=== PATIENT | male | born 1965 ===

== ENCOUNTER 2021-10-16 06:58 | Inpatient (IN) ==
[~2021-10-16 06:58] MED LIST: Buffered Lidocaine 1% SYRIN 1 ml INTRADERM ONE; Lactated Ringers 1000 ml BAG 1,000 ML IV SCH
[2021-10-16] MEDS ORDERED: Clindamycin 900 MG/D5W BAG 900 MG/50 ML BAG IVPB ONE (08:05)
[2021-10-16] MEDS ORDERED: Scopolamine 1 mg/72hr PATCH ONE (08:05)
[2021-10-16] MEDS ORDERED: Heparin 5000 UNITS/ML 1 mL VIAL ONE (08:05)
[2021-10-16] MEDS ORDERED: DiMENhydriNATE IV 50 mg/ml 1 ml VIAL IV PUSH PRN (09:06)
[2021-10-16] MEDS ORDERED: Ondansetron 4 mg VIAL 2 MG/ML 2 ml VIAL IV PRN ×2 (09:06→12:35)
[2021-10-16] MEDS ORDERED: Naloxone 0.4 mg VIAL 0.4 mg/ml 1 ml VIAL IV PRN (09:06)
[2021-10-16] MEDS ORDERED: Metoclopramide 5 MG/ML VIAL (10 mg) IV PRN (09:06)
[2021-10-16] MEDS ORDERED: fentaNYL 100 mcg/2 ml 50 MCG/ML VIAL ONE ×2 (09:31→12:44)
[2021-10-16] MEDS ORDERED: Midazolam 2 mg/2 ml VIAL 1 mg/ml 2 ml VIAL (2 mg) ONE (09:31)
[2021-10-16] MEDS ORDERED: Dexamethasone IV 4 MG/ML VIAL 1 ml VIAL ONE (09:31)
[2021-10-16] MEDS ORDERED: Lidocaine 2% PF 5 ML VIAL ONE (09:31)
[2021-10-16] MEDS ORDERED: Propofol 10 MG/ML 20 ML BTL ONE (09:31)
[2021-10-16] MEDS ORDERED: Rocuronium 50 mg VIAL 10 mg/ml 5 ml VIAL (50 mg) ONE ×3 (09:31→11:44)
[2021-10-16] MEDS ORDERED: Bupivacaine 0.5% SDV PF 30ML VIAL ONE (09:32)
[2021-10-16] MEDS ORDERED: Lidocaine 1% w EPI 1:200,000 SDV 30 ML VIAL ONE (09:32)
[2021-10-16] MEDS ORDERED: Methylene Blue 0.5 % 50 MG/10 ML AMP IV ONE (09:32)
[2021-10-16] MEDS ORDERED: EPHEDrine (Pressors) 50 MG/ML VIAL ONE (10:45)
[2021-10-16] MEDS ORDERED: Phenylephrine 40 mcg/mL 10mL (400mcg) SYRINGE ONE (10:46)
[2021-10-16] MEDS ORDERED: Acetaminophen IV 1 GM/100ML 100 ML IV ONE (11:36)
[2021-10-16] MEDS ORDERED: Sugammadex 500 MG/5 ML 5 ml VIAL IV PUSH ONE (11:53)
[2021-10-16] MEDS ORDERED: Ondansetron 4 mg VIAL 2 MG/ML 2 ml VIAL ONE (12:23)
[2021-10-16] MEDS ORDERED: HYDROmorphone 0.5 MG/0.5 ML SYRINGE IV SLOW PU PRN (12:35)
[2021-10-16] MEDS ORDERED: HYDROcodone/ACET. 7.5/325 LIQ 15 ML UDC PO PRN (12:35)
[2021-10-16] MEDS ORDERED: Dextrose 50% Syringe 50 ml 25 GM/50 ML SYRINGE IV PUSH PRN (12:40)
[2021-10-16] MEDS: fentaNYL 100 mcg/2 ml 50 MCG/ML VIAL IV PRN ×2 (12:45→12:58)
[2021-10-16] MEDS ORDERED: HYDROmorphone 1 MG/1 ML SYRINGE ONE (13:14)
[2021-10-16] MEDS: HYDROmorphone 1 MG/1 ML SYRINGE IV PRN ×2 (13:21→13:32)
[2021-10-16] MEDS: Lactated Ringers 1000 ml BAG 1,000 ML IV SCH ×2 (14:04→21:17)
[2021-10-16] MEDS: Heparin 5000 UNITS/ML 1 mL VIAL SUBCUT SCH (21:14)
[2021-10-17] MEDS: Lactated Ringers 1000 ml BAG 1,000 ML IV SCH (04:31)
[2021-10-17] MEDS: Heparin 5000 UNITS/ML 1 mL VIAL SUBCUT SCH ×2 (06:06→14:06)
[2021-10-17 11:25] VITALS: BP 116/81
[2021-10-17] MEDS ORDERED: D5W 1/2 NS KCl 20 meq 1000 ml 1,000 ML IV SCH (13:00)
== END 2021-10-17 16:00 | disposition home or self-care (01) | DRG 403 ==
LOC: AA 06:58 → SSU 13:58
PROVIDERS: ADMIT Surgery; ATTEND Surgery